=== PATIENT | female | born 1955 | race Caucasian/White ===

== ENCOUNTER 2017-08-13 07:07 | Outpatient (CLI) | payer BC | END 2017-08-13 07:08 | disposition home or self-care (01) | LOC: BICULT 07:07 | PROVIDERS: ATTEND Family Medicine | DX: N95.0 Postmenopausal bleeding (principal); D25.9 Leiomyoma of uterus, unspecified; R93.8 Abnormal findings on diagnostic imaging of other specified body structures | CPT/HCPCS: 76856 ==

== ENCOUNTER 2017-10-31 14:13 | Outpatient (CLI) | payer BC ==
[2017-10-31 15:17] LABS: Hemoglobin 14.2 g/dL (12.0-16.0); Mean Corpuscular HGB CONC 34.1 g/dL (32.0-36.0); Mean Platelet Volume 6.8 fL (7.4-10.4); Platelet Count 322 thou/uL (130-400); RBC Distribution Width 11.5 % (11.5-14.5); Red Blood Cell (RBC) Count 4.44 mill/uL (4.20-5.40); White Blood Cell (WBC) Count 5.6 thou/uL (4.8-10.8)
== END 2017-10-31 14:14 | disposition home or self-care (01) ==
LOC: LABBT 14:13
PROVIDERS: ATTEND Student in an Organized Health Care Education/Training Program
DX: Z01.812 Encounter for preprocedural laboratory examination (principal); N95.0 Postmenopausal bleeding; R93.8 Abnormal findings on diagnostic imaging of other specified body structures
CPT/HCPCS: 85027; 86850; 86900; 86901

== ENCOUNTER 2017-11-04 07:53 | Day surgery (SDC) | payer BC ==
[2017-10-31 14:34] VITALS: BMI 33.4
--- NOTE | 2017-11-04 05:52 | HP-2 ---
DATE OF OPERATION: 11/04/2017 CHIEF COMPLAINT: Postmenopausal vaginal bleeding. HISTORY OF PRESENT ILLNESS: This is a 62-year-old G0 that was referred to my office for postmenopausal bleeding in 07/2017, had menstrual cramps, and light flow for 4 days. She has not had any prior bleeding to this since her menopause in 2007. She does not take hormones or have a history of breast cancer. She does have a history of endometriosis and infertility. She was unable to be biopsied in the office and endometrial thickness on pelvic ultrasound was 2 cm. CURRENT MEDICATIONS: Alendronate 70 mg p.o. q. week, Sudafed 30 mg p.r.n. PAST MEDICAL HISTORY: Osteopenia. PAST SURGICAL HISTORY: Laparoscopy for endometriosis x2, D&C, knee surgery. HISTORY: G-0. GYNECOLOGIC HISTORY: No abnormal Paps, no STDs SOCIAL HISTORY: Negative x3. ALLERGIES: No known drug allergies. FAMILY HISTORY: Noncontributory. REVIEW OF SYSTEMS: Negative except as noted in HPI. PHYSICAL EXAMINATION: VITAL SIGNS: Blood pressure 120/80, respirations 18, pulse is 75. Weight 175, BMI 34.2. GENERAL: No acute distress. CARDIOVASCULAR: Regular rate and rhythm. LUNGS: Clear to auscultation bilaterally. ABDOMEN: Soft, nontender, nondistended. EXTREMITIES: No edema, cyanosis or clubbing. PELVIC: Deferred to OR. ASSESSMENT AND PLAN: A 62-year-old G0 with postmenopausal vaginal bleeding and thickened endometrial stripe on ultrasound, needing final definitive diagnosis with endometrial sampling and I have counseled the patient for hysteroscopy, dilation and curettage including risks of surgery to include bleeding, transfusion, infection, uterine perforation, damage to surrounding structures. She understands and wishes to proceed. She will follow up with me in 2 weeks postoperative time. MARV
[2017-11-04] MEDS ORDERED: CEFAZOLIN/Water 2 GM/20 ML SYRINGE ONE (08:32)
[2017-11-04] MEDS ORDERED: Scopolamine 1.5 mg/72 hour Patch TOP SCH (08:35)
[2017-11-04] MEDS ORDERED: Midazolam HCl 2 mg/2 ml Vial IVP SCH (08:35)
[2017-11-04] MEDS ORDERED: Midazolam HCl 2 mg/2 ml Vial ONE ×2 (08:39→11:38)
[2017-11-04] MEDS ORDERED: Scopolamine 1.5 mg/72 hour Patch ONE ×2 (08:40→09:00)
[2017-11-04] MEDS ORDERED: Fentanyl 250 MCG/5 ML VIAL ONE (11:46)
[2017-11-04] MEDS ORDERED: Promethazine HCl 25 MG/ML VIAL ONE (11:46)
--- NOTE | 2017-11-04 13:58 | OP ---
DATE OF OPERATION: 11/04/2017 PREOPERATIVE DIAGNOSES: 1. Postmenopausal vaginal bleeding. 2. Thickened endometrial stripe. POSTOPERATIVE DIAGNOSES: 1. Postmenopausal vaginal bleeding. 2. Thickened endometrial stripe. 3. Endometrial polyps. ANESTHESIA: General LMA. ATTENDING SURGEON: Jesi Beach M.D. PATIENT SERVICES SPECIALIST SURGEON: None. ESTIMATED BLOOD LOSS: Less than 10 mL. INTRAVENOUS FLUIDS: One liter crystalloid. URINE OUTPUT: 100 mL of clear urine at the beginning. PATHOLOGY: Endometrial polyps. COMPLICATIONS: None. DRAINS: None. FINDINGS: A small mobile uterus sounded to 7 cm. Two large endometrial polyps and no other endometr ial masses. Fluid deficit for the case was 60 mL. OPERATIVE TECHNIQUE: The patient was taken to the operating room where general anesthesia was obtain ed without difficulty. The patient was prepped and draped in a sterile fashion in the [facility]. A speculum was placed in the vagina. The anterior lip of the cervix was grasped with a singl e-tooth tenaculum and the cervix was then progressively dilated with Jason dilators. Uterus then soun ded to 7 cm, and 5 mm hysteroscope using normal saline as distention media was then inserted into the uterus and the above findings were noted with 2 endometrial polyps from the fundus of the uterus. T he incisor was then assembled and inserted through the operating channel and was used to extract the polyps completely until they were flushed with the uterine wall. No other masses or abnormalities we re noted and the instruments were removed out of the uterus. There was no active bleeding from the c ervix. Tenaculum was removed off the cervix and all instruments were removed out of the vagina. The patient tolerated procedure well. Sponge, lap, needle counts were correct x2. The patient was take n to recovery room in stable condition.
[2017-11-04] MEDS ORDERED: Dexamethasone 20 MG/5 ML VIAL ONE (17:05)
[2017-11-04] MEDS ORDERED: Ondansetron HCl/PF 4 MG/2 ML Vial ONE (17:05)
[2017-11-04] MEDS ORDERED: PROPOFOL 200 MG/20 ML VIAL ONE (17:05)
== END 2017-11-04 15:16 | disposition home or self-care (01) ==
LOC: SDC 07:53
PROVIDERS: ATTEND Student in an Organized Health Care Education/Training Program
PROC: 0UBC8ZX Excision of Cervix, Via Natural or Artificial Opening Endoscopic, Diagnostic (ICD-10-PCS; principal; 2017-11-04)
DX: N85.8 Other specified noninflammatory disorders of uterus (principal); N95.0 Postmenopausal bleeding; G43.909 Migraine, unspecified, not intractable, without status migrainosus; M19.90 Unspecified osteoarthritis, unspecified site; M85.80 Other specified disorders of bone density and structure, unspecified site; E66.9 Obesity, unspecified; Z68.33 Body mass index [BMI] 33.0-33.9, adult; Z79.83 Long term (current) use of bisphosphonates; Z98.890 Other specified postprocedural states
CPT/HCPCS: 88305; J1100; J2250; J2405; J2550; J2704; J3010

== ENCOUNTER 2018-07-21 08:59 | Outpatient (CLI) | payer BC | END 2018-07-21 09:00 | disposition home or self-care (01) | LOC: BICMAMMO 08:59 | PROVIDERS: ATTEND Family Medicine | DX: Z12.31 Encounter for screening mammogram for malignant neoplasm of breast (principal); Z80.3 Family history of malignant neoplasm of breast | CPT/HCPCS: 77063; 77067 ==

== ENCOUNTER 2018-08-06 08:13 | Outpatient (CLI) | payer BC ==
--- NOTE | 2018-08-06 09:12 | ULT ---
ULTRASOUND PELVIC TRANSVAGINAL: HISTORY: Postmenopausal bleeding. COMPARISON: Pelvic ultrasound 08/13/2017. FINDINGS: Uterus is enlarged measuring 8.2 x 6.1 x 6.2 cm. The endometrial thickness is 5 mm. In the right uterine fundus is a large right 6.5 cm mass that shows the appearance of a fibroid. Ovaries are not seen. No free fluid. IMPRESSION: 1. Likely a large fundal fibroid measuring up to 6.5 cm. 2. Minimally abnormally thickened endometrium, markedly improved from the comparison examination whi ch only measures approximately 5 mm on today's exam. POS: TPC
== END 2018-08-06 08:14 | disposition home or self-care (01) ==
LOC: BICULT 08:13
PROVIDERS: ATTEND Family Medicine
DX: N95.0 Postmenopausal bleeding (principal); R93.89 Abnormal findings on diagnostic imaging of other specified body structures
CPT/HCPCS: 76856

== ENCOUNTER 2019-07-22 08:58 | Outpatient (CLI) | payer BC ==
--- NOTE | 2019-07-22 10:41 | MMO ---
Bilateral MAMMO Bilat Screen [facility]. CLINICAL HISTORY: Patient is 63 years old and is seen for screening. The patient has the following family history of breast cancer: maternal aunt. The patient has no personal history of cancer. VIEWS: The views performed were: bilateral craniocaudal with tomosynthesis and bilateral mediolateral oblique with tomosynthesis. FILMS COMPARED: The present examination has been compared to prior imaging studies performed at [facility] on 06/09/2015, 06/12/2016, 07/12/2017 and 07/21/2018. This study has been interpreted with the assistance of computer-aided detection. MAMMOGRAM FINDINGS: There are scattered fibroglandular densities. Finding 1: There are stable benign appearing calcifications seen in both breasts. Finding 2: There are stable masses with circumscribed margins seen in both breasts. There are no suspicious masses, suspicious calcifications, or new areas of architectural distortion. IMPRESSION: THERE IS NO MAMMOGRAPHIC EVIDENCE OF MALIGNANCY. A ROUTINE FOLLOW-UP MAMMOGRAM IN 1 YEAR IS RECOMMENDED. THE RESULTS OF THIS EXAM WERE SENT TO THE PATIENT. ACR BI-RADS Category 2 - Benign finding MAMMOGRAPHY NOTE: 1. A negative mammogram report should not delay a biopsy if a dominant of clinically suspicious mass is present. 2. Approximately 10% to 15% of breast cancers are not detected by mammography. 3. Adenosis and dense breasts may obscure an underlying neoplasm. Reported by: MICHAEL LORD MD Electonically Signed: [id number]
== END 2019-07-22 08:59 | disposition home or self-care (01) ==
LOC: BICMAMMO 08:58
PROVIDERS: ATTEND Family Medicine
DX: Z12.31 Encounter for screening mammogram for malignant neoplasm of breast (principal); Z80.3 Family history of malignant neoplasm of breast
CPT/HCPCS: 77063; 77067

== ENCOUNTER 2019-09-07 10:10 | Outpatient (CLI) | payer BC ==
--- NOTE | 2019-09-07 10:47 | BD ---
DEXA BONE DENSITY SCAN: DATE: 09/07/2019. COMPARISON: None. HISTORY: Osteoporosis. FINDINGS: Lumbar Spine: BMD (g/cm2) L1 0.752 T-Score: -2.2 L2 0.634 T-Score: -3.6 L3 0.700 T-Score: -3.3 L4 0.673 T-Score: -3.5 L1-L4 0.695 T-Score: -3.2 Femoral Neck: 0.551 T-Score: -2.6 Total Femur: 0.744 T-Score: -1.6: FRAX-WHO fracture risk assessment tool is not reported as some T-scores are at or below -2.5 IMPRESSION: Lumbar spine and femoral neck osteoporosis, correlating with a high associated risk for fracture. Transcribed Date/Time: 09/07/2019 10:55 AM
== END 2019-09-07 10:11 | disposition home or self-care (01) ==
LOC: BICMAMMO 10:10
PROVIDERS: ATTEND Family Medicine
DX: M81.0 Age-related osteoporosis without current pathological fracture (principal)
CPT/HCPCS: 77080

== ENCOUNTER 2019-09-28 12:59 | Outpatient (CLI) | payer BC ==
--- NOTE | 2019-09-28 14:50 | RAD ---
THORACIC SPINE 2 VIEWS: HISTORY: Osteoporosis without current fracture. FINDINGS: Mild generalized disk-osteophytosis. No evidence for acute fracture or significant malalignment. No evidence for vertebral body flaps. No significant malalignment. IMPRESSION: Generalized spondylosis. No evidence for vertebral body collapse. No acute fracture or dislocation. No focal bone lesion. POS: TPC
== END 2019-09-28 13:00 | disposition home or self-care (01) ==
LOC: BICRAD 12:59
PROVIDERS: ATTEND Internal Medicine Rheumatology
DX: M81.0 Age-related osteoporosis without current pathological fracture (principal); M47.814 Spondylosis without myelopathy or radiculopathy, thoracic region
CPT/HCPCS: 72070

== ENCOUNTER 2020-09-26 12:51 | Outpatient (CLI) | payer BC ==
--- NOTE | 2020-09-26 13:36 | MMO ---
Bilateral MAMMO Bilat Screen [facility]. CLINICAL HISTORY: Patient is 64 years old and is seen for screening. The patient has the following family history of breast cancer: maternal aunt. The patient has no personal history of cancer. VIEWS: The views performed were: bilateral craniocaudal; bilateral craniocaudal with tomosynthesis; bilateral mediolateral oblique with tomosynthesis; and left mediolateral. FILMS COMPARED: The present examination has been compared to prior imaging studies performed at [facility] on 06/12/2016, 07/12/2017, 07/21/2018 and 07/22/2019. This study has been interpreted with the assistance of computer-aided detection. MAMMOGRAM FINDINGS: There are scattered fibroglandular densities. Benign calcifications are noted bilaterally. Nodularity is stable. There are no suspicious masses, suspicious calcifications, or new areas of architectural distortion. IMPRESSION: THERE IS NO MAMMOGRAPHIC EVIDENCE OF MALIGNANCY. A ROUTINE FOLLOW-UP MAMMOGRAM IN 1 YEAR IS RECOMMENDED. THE RESULTS OF THIS EXAM WERE SENT TO THE PATIENT. ACR BI-RADS Category 2 - Benign finding MAMMOGRAPHY NOTE: 1. A negative mammogram report should not delay a biopsy if a dominant of clinically suspicious mass is present. 2. Approximately 10% to 15% of breast cancers are not detected by mammography. 3. Adenosis and dense breasts may obscure an underlying neoplasm. Reported by: SURYA DYSON MD Electonically Signed: [id number]
== END 2020-09-26 12:52 | disposition home or self-care (01) ==
LOC: BICMAMMO 12:51
PROVIDERS: ATTEND Family Medicine
DX: Z12.31 Encounter for screening mammogram for malignant neoplasm of breast (principal); Z80.3 Family history of malignant neoplasm of breast
CPT/HCPCS: 77063; 77067

== ENCOUNTER 2021-09-13 08:14 | Outpatient (CLI) | payer BC | END 2021-09-13 08:15 | disposition home or self-care (01) | LOC: BICMAMMO 08:14 | PROVIDERS: ATTEND Internal Medicine Rheumatology | DX: M81.0 Age-related osteoporosis without current pathological fracture (principal); M85.89 Other specified disorders of bone density and structure, multiple sites | CPT/HCPCS: 77080 ==

== ENCOUNTER 2021-10-06 13:50 | Outpatient (CLI) | payer BC | END 2021-10-06 13:51 | disposition home or self-care (01) | LOC: BICMAMMO 13:50 | PROVIDERS: ATTEND Family Medicine | DX: Z12.31 Encounter for screening mammogram for malignant neoplasm of breast (principal); Z80.3 Family history of malignant neoplasm of breast | CPT/HCPCS: 77063; 77067 ==

== ENCOUNTER 2023-07-03 12:58 | Outpatient (CLI) | payer BC, MEDICARE, OTHER | END 2023-07-03 12:59 | disposition home or self-care (01) | LOC: BICMAMMO 12:58 | PROVIDERS: ATTEND Family Medicine | DX: Z12.31 Encounter for screening mammogram for malignant neoplasm of breast (principal); Z80.3 Family history of malignant neoplasm of breast | CPT/HCPCS: 77063; 77067 ==

== ENCOUNTER 2024-05-13 08:49 | Outpatient (CLI) | payer BC, MEDICARE | END 2024-05-13 08:50 | disposition home or self-care (01) | LOC: BICMAMMO 08:49 | PROVIDERS: ATTEND Internal Medicine Rheumatology | DX: M81.0 Age-related osteoporosis without current pathological fracture (principal); M85.851 Other specified disorders of bone density and structure, right thigh | CPT/HCPCS: 77080 ==

== ENCOUNTER 2024-07-06 10:32 | Outpatient (CLI) | payer BC, MEDICARE | END 2024-07-06 10:33 | disposition home or self-care (01) | LOC: BICMAMMO 10:32 | PROVIDERS: ATTEND Family Medicine | DX: Z12.31 Encounter for screening mammogram for malignant neoplasm of breast (principal); Z80.3 Family history of malignant neoplasm of breast | CPT/HCPCS: 77063; 77067 ==

== ENCOUNTER 2025-07-14 13:24 | Outpatient (CLI) | payer BC, MEDICARE | END 2025-07-14 13:25 | disposition home or self-care (01) | LOC: BICMAMMO 13:24 | PROVIDERS: ATTEND Family Medicine | DX: Z12.31 Encounter for screening mammogram for malignant neoplasm of breast (principal); Z80.3 Family history of malignant neoplasm of breast | CPT/HCPCS: 77063; 77067 ==